=== PATIENT | female | born 1995 | race Caucasian/White ===

== ENCOUNTER 2021-07-31 13:04 | Outpatient (CLI) | payer OTHER, SELFPAY ==
[2021-07-31 14:43] LABS: Glucose 1 Hour PP 50gm Dose 96 mg/dL
[2021-07-31 14:46] LABS: Hematocrit 29.8 % (37.0-47.0); Hemoglobin 9.8 g/dL (12.0-15.0)
[2021-07-31 16:39] LABS: HIV 1/2 Ab P24 Ag Result Negative (Negative)
[2021-07-31] MEDS: RHO(D) IMMUNE GLOBULIN 300 MCG/2 ML SYRINGE IM (17:08)
[2021-08-02 14:51] LABS: Lead, Blood <1.0 mcg/dL (<3.5)
[2021-08-08 08:43] LABS: Collection Sample VENOUS
== END 2021-07-31 13:05 | disposition home or self-care (01) ==
PROVIDERS: Visit Provider Obstetrics & Gynecology
DX: Z36.89 Encounter for other specified antenatal screening (principal); O36.0130 Maternal care for anti-D [Rh] antibodies, third trimester, not applicable or unspecified; Z3A.00 Weeks of gestation of pregnancy not specified
CPT/HCPCS: 36415; 82947; 83655; 85014; 85018; 85461; 86703; 90384; 96372; G0432; J2790

== ENCOUNTER 2021-10-13 07:06 | Inpatient (IN) | payer OTHER, SELFPAY ==
[2021-10-13] VITALS (69 sets, daily range): BP systolic 87–133; BP diastolic 40–96; PULSE 34–113; RESP 16–20; TEMP 36.1–37; O2SAT 85–100; BMI 28.5
--- OUTSIDE RECORDS SUMMARY | 2021-10-13 07:14 | XMS_ITS | Encounter Summary ---
:1995 Author Care Team Providers Name Role Phone Sameer Sood MD Primary Care Provider [phone] Reason for Visit None recorded. Assessment and Plan 1. care: poor obstetric histo ry ? US, obstetric, biophysical profile + non-stress test Discussion Note: None recorded.Patient educational handouts: No information available. Plan of Care Reminders Provider Appointments Nst 10/16/2021 Nst, , [facility] 1:00PM ? Ob Routine 10/16/2021 Nicola salgado MD 2:00PM ? U/S OB BPP 10/16/2021 Ultrasound, [facility] 1:30PM Lab None recorded. ? ? Referral None recorded. ? ? Procedures None recorded. ? ? Surgeries None recorded. ? ? Imaging US, Obstetric, Biophysical 10/09/2021 [place] Profile + Non-stress Test Medications Name Start Date ? ? ondansetron 8 mg disintegrating tablet ? Place 1 tablet twice a day by translingual route. ? sertraline 50 mg tablet ? TAKE 1 TABLET BY MOUTH EVERY DAY Medications Administered None recorded. Vitals None recorded. Results Lab Results None recorded. Allergies Code Code System Name Reaction Severity Onset NKDA ? ? ? Problems Name Status Onset Date Source ? Oligohydramnios Active 03/14/2021 ? High Risk Due to History of Labor Active 03/14/2021 ? Active 04/04/2021 ? Notes: MFM on 05/03/21 for u/s & OV Procedures
--- OUTSIDE RECORDS SUMMARY | 2021-10-13 07:14 | XMS_ITS | Encounter Summary ---
:1995 Author Care Team Providers Name Role Phone Sameer Sood MD Primary Care Provider [phone] Reason for Visit OB visit Assessment and Plan Assessment Note Patient is ___weeks . Discussed plan. 1. Routine care Discussion Note: None recorded.Patient educational handouts: No information available. Plan of Care Reminders Provider Appointments Nst 10/16/2021 1:00PM Nst, , EQU[facility] ? Ob Routine 10/16/2021 2:00PM Nicola Marquez MD ? U/S OB BPP 10/16/2021 1:30PM Ultrasound, TECH Lab None recorded. ? ? Referral None recorded. ? ? Procedures None recorded. ? ? Surgeries None recorded. ? ? Imaging None recorded. ? ? Medications Name Start Date ? ? ondansetron 8 mg disintegrating tablet ? Place 1 tablet twice a day by translingual route. ? sertraline 50 mg tablet ? TAKE 1 TABLET BY MOUTH EVERY DAY Medications Administered None recorded. Vitals Height Weight BMI Blood Pressure 5 ft 2 in 160 lbs 29.3 kg/m2 130/76 mm[Hg] Results Lab Results None recorded. Allergies Code Code System Name Reaction Severity Onset NKDA ? ? ? Problems Name Status Onset Date Source ? Oligohydramnios Active 03/14/2021 ? High Risk Due to History of Labor Active 03/14/2021 ? Active 04/04/2021 ? Notes: MFM on 05/03/21 for u/s & OV Procedures Date Name Performed by ?
--- OUTSIDE RECORDS SUMMARY | 2021-10-13 07:14 | XMS_ITS ---
:1995 Author Care Team Providers Name Role Phone RAYMOND TREJO MD Primary Care Provider [phone] Allergies Code Code System Name Reaction Severity Status Onset NKDA ? Medications Name Status Start Date Stop Date ? ? acetaminophen 500 mg tablet Completed ? 06/25 DOK 100 mg capsule Completed ? 07/23/2019 fluoxetine 10 mg tablet Completed ? 03/31/19 16 take 2 tablet by oral route every day in the morning ibuprofen 600 mg tablet Completed ? 07/23/19 20 Metrogel Vaginal 0.75 % Completed 07/31/2017 09/04/19 18 insert 1 applicatorful by vaginal route every day at bedtime fo r 5 nights Microgestin FE 04/13 (28) 1 mg-20 mcg (21)/75 mg (7) tablet Compl eted 04/06/2015 09/26/2016 take 1 tablet by oral route every day Nexplanon 68 mg subdermal implant Completed ? 04/06/2015 nitrofurantoin monohydrate/macrocrystals 100 mg capsule Complete d ? 03/14/2021 TAKE 1 CAPSULE BY MOUTH EVERY 12 HOURS FOR 7 DAYS ondansetron 8 mg disintegrating tablet Active ? Not available Pepcid 20 mg tablet Completed 08/15/2018 01/27/2019 take 1 tablet by oral route 2 times every day Active ? Not available 28 mg iron-800 mcg tablet Completed ? 01/27/2019 Ritalin 10 mg tablet Completed ? 03/31/2015 take 1 tablet by oral route 2 times every day sertraline 100 mg tablet Completed ? 021 TK 1 T PO QD sertraline 50 mg tablet Active ? Not avai lable triamcinolone acetonide 0.1 % topical cream Completed ? 03/14/2021 APPLY TOPICALLY TO THE AFFECTED AREA TWICE DAILY Vitamin D3 10 mcg (400 unit) capsule Completed ? 01/27/2019 Zithromax 50
--- OUTSIDE RECORDS SUMMARY | 2021-10-13 07:14 | XMS_ITS | Encounter Summary ---
:1995 Author Care Team Providers Name Role Phone Sameer Sood MD Primary Care Provider [phone] Reason for Visit None recorded. Assessment and Plan 1. condition affecting obstetrica l care of mother ? non-stress test Discussion Note: None recorded.Patient educational handouts: No information available. Plan of Care Reminders Provider Appointments Nst 10/16/2021 1:00PM Nst, , EQUIP ? Ob Routine 10/16/2021 2:00PM Nicola Marquez MD ? U/S OB BPP 10/16/2021 1:30PM Ultrasound, TECH Lab None recorded. ? ? Referral None recorded. ? ? Procedures None recorded. ? ? Surgeries None recorded. ? ? Imaging Non-stress Test 10/11/2021 [place] Medications Name Start Date ? ? ondansetron [...] OV Procedures Date Name Performed by ? 09/11/2021 US, Obstetric, Biophysical Profile + [place] [facility] Non-stress Test [address]
--- OUTSIDE RECORDS SUMMARY | 2021-10-13 07:14 | XMS_ITS | Encounter Summary ---
:1995 Author Care Team Providers Name Role Phone Sameer Sood MD Primary Care Provider [phone] Reason for Visit None recorded. Assessment and Plan 1. High risk care ? US, obstetric, biophysical profile + non-stress [...] recorded. ? ? Imaging US, Obstetric, Biophysical 09/[facility]/2021 [place] [facility] + Non-stress Test Medications Name Start [...] on 05/03/21 for u/s & OV Procedures D
--- OUTSIDE RECORDS SUMMARY | 2021-10-13 07:14 | XMS_ITS | Encounter Summary ---
:1995 Author Care Team Providers Name Role Phone Sameer Sood MD Primary Care Provider [phone] Reason for Visit None recorded. Assessment and Plan 1. care: poor obstetric histo ry ? US, obstetric, follow-up ? US, obstetric, biophysical profile + non-stress [...] None recorded. ? ? Imaging US, Obstetric, Follow-up 10/02/2021 [place] ? US, Obstetric, Biophysical 10/02/2021 [place] [facility] Profile + Non-stress Test Medications Name Start [...]
--- OUTSIDE RECORDS SUMMARY | 2021-10-13 07:14 | XMS_ITS | Encounter Summary ---
:1995 Author Care Team Providers Name Role Phone Sameer Sood MD Primary Care Provider [phone] Reason for Visit OB visit OB [id number] EDC 10/19/2021 LMP 01/12/2021 Assessment and Plan 1. Routine care Discussion Note: None recorded.Patient [...] BMI Blood Pressure 5 ft 2 in 159 lbs 29.1 kg/m2 121/77 mm[Hg] Results Lab Results None recorded. Allergies Code Code System Name Reaction Severity Onset NKDA ? ? ? Problems Name Status Onset Date Source ? Oligohydramnios Active 03/14/2021 ? High Risk Due to History of Labor Active 03/14/2021 ? Active 04/04/2021 ? Notes: MFM on 05/03/21 for u/s & OV Procedures Date Name Performed by ? 08/29/2021 US, Obstetric, Biophysical Profile + [place] [facility]
--- OUTSIDE RECORDS SUMMARY | 2021-10-13 07:14 | XMS_ITS | Encounter Summary ---
:1995 Author Care Team Providers Name Role Phone Sameer Sood MD Primary Care Provider [phone] Reason for Visit OB visit Assessment and Plan Assessment Note Patient is ___weeks . Discussed plan. 1. screening Discussion Note: None recorded.Patient educational handouts: No [...] BMI Blood Pressure 5 ft 2 in 162 lbs 29.6 kg/m2 111/71 mm[Hg] Results Lab Results None recorded. Allergies Code Code System Name Reaction Severity Onset NKDA ? ? ? Problems Name Status Onset Date Source ? Oligohydramnios Active 03/14/2021 ? High Risk Due to History of Labor Active 03/14/2021 ? Active 04/04/2021 ? Notes: MFM on 05/03/21 for u/s & OV Procedures Date Name Performed by ?
--- OUTSIDE RECORDS SUMMARY | 2021-10-13 07:14 | XMS_ITS | Encounter Summary ---
:1995 Author Care Team Providers Name Role Phone Sameer Sood MD Primary Care Provider [phone] Reason for Visit None recorded. Assessment and Plan 1. History of growth retardation ? non-stress test Discussion Note: None recorded.Patient educational handouts: No information available. Plan of Care Reminders Provider Appointments Nst 10/16/2021 1:00PM Nst, , EQU[facility] ? Ob Routine 10/16/2021 2:00PM Nicola Marquez MD ? U/S OB BPP 10/16/2021 1:30PM Ultrasound, TECH Lab None recorded. ? ? Referral None recorded. ? ? Procedures None recorded. ? ? Surgeries None recorded. ? ? Imaging Non-stress Test 10/09/2021 [place] Medications Name Start Date ? ? ondansetron [...] Biophysical Profile + [place] Non-stress Test [address],
--- OUTSIDE RECORDS SUMMARY | 2021-10-13 07:14 | XMS_ITS | Encounter Summary ---
:1995 Author Care Team Providers Name Role Phone Sameer Sood MD Primary Care Provider [phone] Reason for Visit None recorded. Assessment and [...] recorded. ? ? Imaging US, Obstetric, Biophysical 09/18/2021 [place] Profile + Non-stress Test Medications [...]
--- OUTSIDE RECORDS SUMMARY | 2021-10-13 07:14 | XMS_ITS | Encounter Summary ---
:1995 Author Care Team Providers Name Role Phone Sameer Sood MD Primary Care Provider [phone] Reason for Visit None recorded. Assessment and [...] None recorded. ? ? Imaging Non-stress Test 09/26/2021 [place] Medications Name Start Date ? ? [...]
--- OUTSIDE RECORDS SUMMARY | 2021-10-13 07:14 | XMS_ITS | Encounter Summary ---
:1995 Author Care Team Providers Name Role Phone Sameer Sood MD Primary Care Provider [phone] Reason for Visit None recorded. Assessment and [...] None recorded. ? ? Imaging Non-stress Test 10/02/2021 [place] Medications Name Start Date ? ? ondansetron [...] OV Procedures Date Name Performed by ? 09/04/2021 US, Obstetric, Follow-up [place] [address] [place] [address]
--- OUTSIDE RECORDS SUMMARY | 2021-10-13 07:14 | XMS_ITS | Encounter Summary ---
:1995 Author Care Team Providers Name Role Phone Sameer Sood MD Primary Care Provider [phone] Reason for Visit OB visit Assessment and [...] ft 2 in 160 lbs 29.3 kg/m2 120/77 mm[Hg] Results Lab Results None recorded. Allergies Code Code System Name Reaction Severity Onset NKDA ? ? ? Problems Name Status Onset Date Source ? Oligohydramnios Active 03/14/2021 ? High Risk Due to History of Labor Active 03/14/2021 ? Active 04/04/2021 ? Notes: MFM on 05/03/21 for u/s & OV Procedures Date Name Performed by ?
--- OUTSIDE RECORDS SUMMARY | 2021-10-13 07:15 | XMS_ITS | Encounter Summary ---
:1995 Author Care Team Providers Name Role Phone Sameer Sood MD Primary Care Provider [phone] Reason for Visit OB visit OB [id number] EDC 10/19/2021 LMP 01/12/2021 Assessment and Plan [...] ft 2 in 159 lbs 29.1 kg/m2 120/74 mm[Hg] Results Lab Results None recorded. Allergies Code Code System Name Reaction Severity Onset NKDA ? ? ? Problems Name Status Onset Date Source ? Oligohydramnios Active 03/14/2021 ? High Risk Due to History of Labor Active 03/14/2021 ? Active 04/04/2021 ? Notes: MFM on 05/03/21 for u/s & OV Procedures Date Name Performed by ? 08/04/2021 US, Obstetric, Follow-up [place]
--- OUTSIDE RECORDS SUMMARY | 2021-10-13 07:15 | XMS_ITS | Encounter Summary ---
:1995 Author Care Team Providers Name Role Phone Sameer Sood MD Primary Care Provider [phone] Reason for Visit NST [id number] EDC 11/02/2021 Assessment and Plan 1. growth restriction ? non-stress test Discussion Note: None recorded.Patient educational handouts: No information available. Plan of Care Reminders Provider Appointments Nst 10/16/2021 1:00PM Nst, , EQUIP ? Ob Routine 10/16/2021 2:00PM Nicola Marquez MD ? U/S OB BPP 10/16/2021 1:30PM Ultrasound, TECH Lab None recorded. ? ? Referral None recorded. ? ? Procedures None recorded. ? ? Surgeries None recorded. ? ? Imaging Non-stress Test 09/18/2021 [place] Medications Name Start Date ? ? ondansetron [...]
--- OUTSIDE RECORDS SUMMARY | 2021-10-13 07:15 | XMS_ITS | Encounter Summary ---
:1995 Author Care Team Providers Name Role Phone Sameer Sood MD Primary Care Provider [phone] Reason for Visit None recorded. Assessment and Plan 1. High risk due to history o f labor ? non-stress test Discussion Note: None recorded.Patient educational handouts: No information available. Plan of Care Reminders Provider Appointments Nst 10/16/2021 1:00PM Nst, , EQUIP ? Ob Routine 10/16/2021 2:00PM Nicola Marquez MD ? U/S OB BPP 10/16/2021 1:30PM Ultrasound, TECH Lab None recorded. ? ? Referral None recorded. ? ? Procedures None recorded. ? ? Surgeries None recorded. ? ? Imaging Non-stress Test 09/11/2021 [place] Medications Name Start Date ? ? ondansetron [...]
--- OUTSIDE RECORDS SUMMARY | 2021-10-13 07:15 | XMS_ITS | Encounter Summary ---
:1995 Author Care Team Providers Name Role Phone Sameer Sood MD Primary Care Provider [phone] Reason for Visit OB visit Assessment and Plan Assessment Note Patient is ___weeks . Discussed plan. Discussion Note: None recorded.Patient educational handouts: No [...] ft 2 in 160 lbs 29.3 kg/m2 120/75 mm[Hg] Results Lab Results None recorded. Allergies [...]
--- OUTSIDE RECORDS SUMMARY | 2021-10-13 07:15 | XMS_ITS | Encounter Summary ---
:1995 Author Care Team Providers Name Role Phone Sameer Sood MD Primary Care Provider [phone] Reason for Visit None recorded. Assessment and Plan 1. Routine care 2. History of growth retardation Discussion Note: None recorded.Patient educational handouts: No [...] Performed by ? 08/04/2021 US, Obstetric, Follow-up [place] [address] [place] [address]
--- OUTSIDE RECORDS SUMMARY | 2021-10-13 07:15 | XMS_ITS | Encounter Summary ---
:1995 Author Care Team Providers Name Role Phone Sameer Sood MD Primary Care Provider [phone] Reason for Visit OB visit Assessment and [...] BMI Blood Pressure 5 ft 2 in 158 lbs 28.9 kg/m2 120/77 mm[Hg] Results Lab Results None [...]
--- OUTSIDE RECORDS SUMMARY | 2021-10-13 07:15 | XMS_ITS | Encounter Summary ---
:1995 Author Care Team Providers Name Role Phone Sameer Sood MD Primary Care Provider [phone] Reason for Visit OB visit Assessment and [...] ft 2 in 160 lbs 29.3 kg/m2 117/72 mm[Hg] Results Lab Results None recorded. Allergies Code Code System Name Reaction Severity Onset NKDA ? ? ? Problems Name Status Onset Date Source ? Oligohydramnios Active 03/14/2021 ? High Risk Due to History of Labor Active 03/14/2021 ? Active 04/04/2021 ? Notes: MFM on 05/03/21 for u/s & OV Procedures Date Name Performed by ?
--- OUTSIDE RECORDS SUMMARY | 2021-10-13 07:15 | XMS_ITS | Encounter Summary ---
:1995 Author Care Team Providers Name Role Phone Sameer Sood MD Primary Care Provider [phone] Reason for Visit None recorded. Assessment and [...] None recorded. ? ? Imaging Non-stress Test 09/04/2021 [place] Medications Name Start Date ? ? ondansetron [...] Performed by ? 08/04/2021 US, Obstetric, Follow-up [place] [address] [place] [address]
--- OUTSIDE RECORDS SUMMARY | 2021-10-13 07:15 | XMS_ITS | Encounter Summary ---
:1995 Author Care Team Providers Name Role Phone Sameer Sood MD Primary Care Provider [phone] Reason for Visit None recorded. Assessment and [...] recorded. ? ? Imaging US, Obstetric, Biophysical 08/29/2021 [place] Profile + Non-stress Test Medications [...]
--- OUTSIDE RECORDS SUMMARY | 2021-10-13 07:15 | XMS_ITS | Encounter Summary ---
:1995 Author Care Team Providers Name Role Phone Sameer Sood MD Primary Care Provider [phone] Reason for Visit None recorded. Assessment and [...] recorded. ? ? Imaging US, Obstetric, Follow-up 09/04/2021 [place] ? US, Obstetric, Biophysical 09/04/2021 [place] Profile + Non-stress Test Medications Name Start [...]
--- OUTSIDE RECORDS SUMMARY | 2021-10-13 07:15 | XMS_ITS | Encounter Summary ---
:1995 Author Care Team Providers Name Role Phone Sameer Sood MD Primary Care Provider [phone] Reason for Visit OB visit Assessment and Plan Assessment Note Patient is ___weeks . Discussed plan. 1. Routine care 2. Spotting per vagina in 3. Reduced movement Discussion Note: None recorded.Patient educational handouts: No [...] BMI Blood Pressure 5 ft 2 in 156 lbs 28.5 kg/m2 128/75 mm[Hg] Results Lab Results None recorded. Allergies Code Code System Name Reaction Severity Onset NKDA ? ? ? Problems Name Status Onset Date Source ? Oligohydramnios Active 03/14/2021 ? High Risk Due to History of Labor Active 03/14/2021 ? Active 04/04/2021 ? Notes: ALF o
--- OUTSIDE RECORDS SUMMARY | 2021-10-13 07:15 | XMS_ITS | Encounter Summary ---
:1995 Author Care Team Providers Name Role Phone Sameer Sood MD Primary Care Provider [phone] Reason for Visit None recorded. Assessment and Plan 1. condition affecting obstetrica l care of mother ? US, obstetric, biophysical profile + non-stress [...] recorded. ? ? Imaging US, Obstetric, Biophysical 09/11/2021 [facility] Profile + Non-stress Test Medications Name Start [...]
--- OUTSIDE RECORDS SUMMARY | 2021-10-13 07:15 | XMS_ITS | Encounter Summary ---
:1995 Author Care Team Providers Name Role Phone Sameer Sood MD Primary Care Provider [phone] Reason for Visit None recorded. Assessment and Plan 1. Reduced movement ? US, obstetric, follow-up ? US, obstetric, transvaginal Discussion Note: None recorded.Patient educational handouts: No information available. Plan of Care Reminders Provider Appointments Nst 10/16/2021 Nst, , EQUIP 1:00PM ? Ob Routine 10/16/2021 Nicola salgado MD 2:00PM ? U/S OB BPP 10/16/2021 Ultrasound, [facility] 1:30PM Lab None recorded. ? ? Referral None recorded. ? ? Procedures None recorded. ? ? Surgeries None recorded. ? ? Imaging US, Obstetric, Follow-up 08/04/2021 [place] ? US, Obstetric, Transvaginal 08/04/2021 [email or web address] Medications Name Start Date ? ? ondansetron [...]
--- NOTE | 2021-10-13 07:22 | WPDANESEPP ---
Anes - Eval Pre Procedure Procedure: labor epidural Date/Time: 10/13/21 07:22 Surgeon: Alma Pre Op Diagnosis: Induction of Labor Patient Data Age: 26 Gender: F Height: Weight: Allergies Allergy/AdvReac Type Severity Reaction Status Date / Time No Known Allergies Allergy Unknown Verified 09/20/21 14:30 Home Medications Medication Instructions Recorded Confirmed Type prenat.vits,sravan,emq-thut-nbtkj 1 tablet PO DAILY 09/20/21 09/20/21 History sertraline 50 mg tablet 50 mg PO DAILY 09/20/21 09/20/21 History Patient hx anesthesia problems: none Family hx anesthesia problems: none Results Review: All pre-operative results and documents have been reviewed as part of the pre-operative evaluation. [facility] Past Medical History Medical History (Updated 10/13/21 @ 07:22 by Bee Cheema CRNA) Anxiety and depression Post traumatic stress disorder (PTSD) Family History Family History Other Unknown family medical history Social History Social History Substance use: never Spiritual care concerns: No Exam Day of Procedure 10/13/21 07:22 Patient weight: overweight Heart: regular rate and rhythm Lungs: normal air movement Airway: Mallampati scale Neurological: alert and oriented
[2021-10-13 07:55] LABS: Basophils Percent Auto 0.4 % (0.2-1.2); Eosinophils Absolute Auto 0.1 K/mm3 (0-0.3); Eosinophils Percent Auto 0.7 % (0-4.4); Hematocrit 31.3 % (37.0-47.0); Hemoglobin 9.6 g/dL (12.0-15.0); Immature Granulocyte Absolute 0.05 K/mm3 (0.00-0.031); Immature Granulocyte Percent A 0.6 % (0-0.5); Lymphocytes Absolute Auto 1.96 K/mm3 (0.9-3.2); Lymphocytes Percent Auto 23.2 % (18.3-44.2); Mean Corpuscular HGB Conc 30.7 g/dl (32-36); Mean Corpuscular Hemoglobin 25.1 pg (26-34); Mean Corpuscular Volume 81.9 fl (80-100); Monocytes Absolute Auto 0.6 K/mm3 (0.1-0.6); Neutrophils Absolute Auto 5.8 K/mm3 (1.3-6.7); Neutrophils Percent Auto 68.1 % (45.5-73.1); Platelet Count Result 198 k/mm3 (150-375); Red Blood Count 3.82 M/mm3 (4.2-5.4); Red Cell Distribution Width 13.4 % (11.5-14.5); White Blood Count 8.4 K/mm3 (4.5-10.0)
--- NOTE | 2021-10-13 07:59 | WPDHPUPDATE1 ---
History and Physical Update Update Date/Time: 10/13/21 07:59 this patient is a 26y/o female at 39 weeks who presents for elective induction of labor. AROM - clear /. Reassuring FHT's. Pitocin and expectant management. History and Physical has been reviewed, including an updated exam of the patient. There are NO changes in the patient's condition. Risks, benefits, and alternatives have been discussed and questions answered. Patient agrees to proceed with procedure.
[2021-10-13] MEDS: LACTATED RINGERS 1,000 ML 125 ML IV CONT ×2 (08:06→12:17)
[2021-10-13] MEDS: OXYTOCIN 30 UNITS/NS 500 ML 30 UNITS/500 ML BAG IV CONT (08:08)
[2021-10-13 08:40] LABS: Rapid Plasma Reagin Non-Reactive (NonReactive)
--- NOTE | 2021-10-13 08:41 | LDADM ---
This patient, Luz Maria Galaviz, was admitted to Labor/Delivery/Recovery 105 on 10/13/21 at 07:06. Plans for labor, pain management and were discussed with patient. Patient/family oriented to hospital policies and general routines including ID bracelet, bed and alarms, visiting hours, pain management, procedures, bathroom and other care routines, personal items, smoking policy, room service/diet and guest tray routines, security routines, and visiting hours. Patient/Family are encouraged to report perceived risks to care and to ask questions if they do not understand what they are told or what they should do. See OBIX for further documentation.
[2021-10-13] MEDS: fentaNYL CITRATE INJ (*CRX) 100 MCG/2 ML VIAL 50 MCG IV PUSH (11:21)
--- NOTE | 2021-10-13 14:08 | P.PCNOB_ITS ---
OB - Delivery Note Procedure Delivery date: 10/13/21 Procedure: Induction method: AROM and Per Pitocin Protocol Delivery monitor: External FHT and External Uterine Route of delivery: Laceration Description: None Quantitative Blood Loss (ml): 100 Anesthesia type: Epidural [place] Baby Date of : 10/13/21 Time of : 14:00 Weeks of gestation at delivery: 39 score five minutes: 8 score ten minutes: 9
[2021-10-13] MEDS: OXYTOCIN 30 UNITS/NS 500 ML 30 UNITS/500 ML BAG 125 UNITS IV CONT (14:34)
[2021-10-13] MEDS: WITCH HAZEL 40 PADS 1 PAD TOPICAL (16:12)
[2021-10-13] MEDS: IBUPROFEN 600 MG TABLET PO (19:46)
[2021-10-14] VITALS: BP 101/53; PULSE 87; RESP 18; TEMP 37; O2SAT 96
[2021-10-14 04:00] VITALS: BP 107/70; PULSE 68; RESP 18; TEMP 36.6; O2SAT 100
[2021-10-14 05:17] LABS: Hematocrit 29.9 % (37.0-47.0); Hemoglobin 9.3 g/dL (12.0-15.0)
[2021-10-14] MEDS: POLYSACCHARIDE IRON COMPLEX 150 MG CAPSULE PO (08:03)
[2021-10-14] MEDS: MULTIVIT/MIN/PREN/FOL AC/IRON TABLET 1 TAB PO (08:03)
[2021-10-14] MEDS: SERTRALINE HCL 50 MG TABLET PO (08:03)
[2021-10-14 09:45] VITALS: BP 112/66; PULSE 78; RESP 18; TEMP 36.4; O2SAT 99
--- NOTE | 2021-10-14 14:01 | PM.OBPNVD ---
OB - PN: Subj Subjective Date/time seen: 10/14/21 14:01 Patient comments: no complaints, pain well controlled, incisional pain, tolerating diet and flatus present OB - PN: Obj Data Labs CBC & Chem 7: 10/14/21 05:03 Labs: Laboratory Results - last 24 hr 10/14/21 05:03 Hgb 9.3 L Hct 29.9 L OB - PN A/P Plan day: 1 Plan: routine care Comments: No problems, routine care, to D/C Time Spent With Patient Time: Total time spent is greater than 50% in coordination of care (as documented) at patient's floor/unit and/or counseling patient: Exam Const: General: comfortable, no acute distress and alert Resp: Effort & Inspection: normal respiratory effort Auscultation: no crackles, no rales and no rhonchi Cardio: Rate: regular rate Heart sounds: no click, no murmurs and no rubs GI: Inspection: non-distended GI Palp: No Tenderness to palpation present (GI) Auscultation: normal bowel sounds Other: Incision - CDI Extrem: General: normal to inspection, no pedal edema and no calf tenderness
--- NOTE | 2021-10-14 14:02 | PM.OBDSVD ---
DS: Admitting Diagnosis Discharge Date 10/14/21 Admitting Diagnosis term DS: Discharge Diagnosis Discharge Diagnosis (1) Term delivered: Code(s): O80 - Encounter for full-term uncomplicated delivery Status: Acute OB - DS: Summary OB Procedures : None OB Procedures Intrapartum: Spontaneous Vag Delivery OB Procedures: : None Time Spent with Patient Time attestation: Total time spent providing and/or coordinating discharge services: DS: Data Data Completed and Pending Labs on day of discharge: Labs from last 24 hours 10/14/21 05:03 Hgb 9.3 L Hct 29.9 L Discharge Plan Discharge Discharging Clinician: Onel Marquez Patient Disposition: Home, Self-Care Activity: pelvic rest Diet: regular Patient Instructions: Antibiotic Form Stand Alone Forms: General Discharge Information Follow-up/Referrals: Onel Marquez MD [Physician] - Discharge Medications: Continued sertraline 50 mg Tablet 50 mg PO DAILY #2 Tablet 1 tablet PO DAILY Date of admission: 10/13/21 07:06 Primary Care Provider: UNKNOWN,DOCTOR Admitting Provider: Onel Marquez Attending physician on admission: Onel Marquez Condition: Stable
[2021-10-14] MEDS: ACETAMINOPHEN 325 MG TABLET 650 MG PO (15:05)
[2021-10-16 09:59] VITALS: BP 117/68; PULSE 72; RESP 20; TEMP 36.9; O2SAT 99
== END 2021-10-14 16:56 | disposition home or self-care (01) | DRG 807 ==
LOC: ANHLDR 07:12 → ANHOB2 17:59
PROVIDERS: Admitting Provider Obstetrics & Gynecology; Visit Provider Obstetrics & Gynecology
DX: O62.3 Precipitate labor (principal); Z37.0 Single live birth; Z3A.39 39 weeks gestation of pregnancy; O69.81X0 Labor and delivery complicated by cord around neck, without compression, not applicable or unspecified; O99.344 Other mental disorders complicating childbirth; F43.10 Post-traumatic stress disorder, unspecified; F41.8 Other specified anxiety disorders
CPT/HCPCS: 36415; 85014; 85018; 85025; 86592; 86850; 86880; 86900; 86901; 86902; A9270; J2590; J2795; J3010; J7120